=== PATIENT | female | born 1990 | race Caucasian/White ===

== ENCOUNTER 2023-01-02 17:42 | Emergency (ER) | payer BC, SELFPAY ==
[2023-01-02] MEDS ORDERED: Lidocaine 1% PF 5 ML VIAL ONE (17:53)
== END 2023-01-02 18:12 | disposition home or self-care (01) ==
LOC: BURERS 17:42
DX: S61.212A Laceration without foreign body of right middle finger without damage to nail, initial encounter (principal); W26.0XXA Contact with knife, initial encounter; Y92.009 Unspecified place in unspecified non-institutional (private) residence as the place of occurrence of the external cause
CPT/HCPCS: 12001